=== PATIENT | male | born 1990 | race Caucasian/White ===

== ENCOUNTER 2023-07-22 00:57 | Emergency (ER) | payer SELFPAY ==
[~2023-07-22] VITALS: Ht 167.6 cm; Wt 76.1 kg
[2023-07-22 01:56] VITALS: O2SAT 97
[2023-07-22] MEDS: HYDROCODONE/ACETAMINOPHEN 5/325MG TABLET PO ONE (08:45)
[2023-07-22] MEDS: LIDOCAINE HCL/PF 1% 10 MG/ML 5ML VIAL INFIL ONE (08:45)
[2023-07-22] MEDS: IBUPROFEN 600MG TABLET PO ONE (09:37)
[2023-07-22] MEDS ORDERED: CEPH500C2 MT (10:27)
[2023-07-22] MEDS ORDERED: CLIN-116 MT (10:27)
[2023-07-22 10:50] VITALS: BP 120/66; PULSE 71; RESP 18; TEMP 98.2
[2023-07-22] MEDS ORDERED: HYDR-4001 MT (15:29)
[2023-07-22] MEDS ORDERED: IBUP-2029 MT (15:29)
== END 2023-07-22 10:53 | disposition home or self-care (01) ==
LOC: ER 00:57
DX: L02.811 Cutaneous abscess of head [any part, except face] (principal)
CPT/HCPCS: 10060; 99283; J3490; Z7610 ×2